=== PATIENT | male | born 2000 | race Caucasian/White ===

== ENCOUNTER → 2018-05-21 | Emergency (ER) | payer OTHER ==
[~2018-05-21] VITALS: Ht 177.8 cm; Wt 68.0 kg
[~2018-05-21] MED LIST: PRD20T PO; RT-ALBUTEROL/IPRATROPIUM 3 ML (DUONEB) VIAL INH ONE
--- NOTE | 2018-05-21 14:57 | ED Respiratory ---
General Chief Complaint: Respiratory Problems Stated Complaint: ASTHMA Nursing Triage Note: pt arrived via EMS on 2L [place] et complaints of feeling SOB since yesterday. Pt states had an asthma attack this morning and was given an albuterol breathing tx. pt states he is feeling better but the nurse wanted him to still come because his oxygen sat was 91% Source: patient Exam Limitations: no limitations History of Present Illness Date Seen by Provider: May 21, 2018 Time Seen by Provider: 14:00 Initial Comments Patient is a 17-year-old male who was brought to the emergency room by [facility], [facility] and [facility] is present. Patient reports that he started having an asthma attack this morning was giving him albuterol breathing treatment and reports relief of shortness of breath and wheezing. The medical nurse at the half-way wanted him to be seen and evaluated. On arrival to the emergency room he is not in any acute distress. He has an extensive history of asthma and is on Advair and albuterol at home. Denies fevers. Timing/Duration: this morning Prior Episodes/Possible Cause: frequent episodes Modifying Factors: Improves With Albuterol Nebulizer Associated Symptoms: denies symptoms Allergies and Home Medications Allergies Coded Allergies: No Known Drug Allergies (Unverified , 05/21/18) Home Medications Prednisone 20 Mg Tab, 40 MG PO DAILY Prescribed by: ALEX MOROCHO on 05/21/18 9639 Patient Home Medication List Home Medication List Reviewed: Yes Review of Systems Review of Systems Constitutional: no symptoms reported, see HPI Respiratory: see HPI, short of breath, wheezing All Other Systems Reviewed Negative Unless Noted: Yes Past Vjiuxau-Wenjrl-Umykvt Hx Past Med/Social Hx: Reviewed Nursing Past Med/Soc Hx Patient Social History Alcohol Use: Occasionally Uses Recreational Drug Use: Yes Drug of Choice: mirajuana Smoking Status: Current Everyday Smoker Type Used: Cigarettes Recent Foreign Travel: No Contact w/Someone Who Travel: No Recent Infectious Disease Expo: No Family Medical History Reviewed Nursing Family Hx Physical Exam Vital Signs - First Documented 05/21/18 05/21/18 05/21/18 14:00 14:14 16:10 Temp 98.4 Pulse 65 Resp 18 B/P (MAP) 132/74 Pulse Ox 97 O2 Delivery Room Air Capillary Refill : Height: 5'10.00" Weight: 150lbs. oz. 68.990884wc; 21.09 BMI Method: General Appearance: WD/WN, no apparent distress HEENT: PERRL/EOMI, normal ENT inspection, TMs normal, pharynx normal Neck: non-tender, full range of motion, supple, normal inspection Respiratory: chest non-tender, no respiratory distress, no accessory muscle use , wheezing (wheezing the lower lobes bilaterally.) Cardiovascular: normal peripheral pulses, regular rate, rhythm, no edema, no gallop, no JVD, no murmur Gastrointestinal: normal bowel sounds, non tender, soft, no organomegaly, no pulsatile mass Neurologic/Psychiatric: alert, normal mood/affect, oriented x 3 Skin: normal color, warm/dry Progress/Results/Core Measures Suspected Sepsis SIRS Temperature:98.4 Pulse: Respiratory Rate: Blood Pressure / Mean: Results/Orders My Orders Orders - ALEX MOROCHO Chest 1 View, Ap/Pa Only (05/21/18 14:08) Albuterol/Ipra Inhalation Soln (Duoneb I (05/21/18 14:15) Svn Small Volume Nebulizer (05/21/18 14:08) Medications Given in ED Vital Signs/I&O 05/21/18 05/21/18 05/21/18 14:00 14:14 16:10 Temp 98.4 97.6 Pulse 65 78 Resp 18 B/P (MAP) 132/74 Pulse Ox 97 100 O2 Delivery Room Air Room Air Room Air Capillary Refill : Progress Note : Time: 14:50 Progress Note I have seen and evaluated the patient. His imaging study results were reviewed with him and his lungs sounds have cleared after breathing treatments. He agrees with plan of care, return precautions were given. Departure Impression Primary Impression: Asthma exacerbation Disposition: 21 DIS/[address]/LAW ENFORCE Condition: Stable/Unchanged Departure-Patient Inst. Decision time for Depature: 14:56 Patient Instructions: Asthma, Adult (DC) Add. Discharge Instructions: Resume your home medications as previously prescribed. Follow-up with your primary care provider or medical professional at the half-way within 1 week for recheck. Take medications as directed. Return back to the emergency room for worsening symptoms or concerns as needed. All discharge instructions reviewed with patient and/or family. Voiced understanding. Scripts Prednisone (Prednisone) 20 Mg Tab 40 MG PO DAILY for 5 Days, #10 TAB Prov: ALEX MOROCHO 05/21/18 ALEX MOROCHO May 21, 2018 14:57
--- NOTE | 2018-05-21 15:41 | NUR ---
pt is sitting up in bed with no complaints. Pt states symptoms have improved
--- NOTE | 2018-05-21 15:41 | Diagnostic Imaging Report ---
INDICATION: Asthma attack. Frontal chest obtained at 02:36 p.m. Heart and mediastinal silhouette are normal in appearance. The lungs are clear. There is no pneumothorax or pleural fluid. IMPRESSION: Negative chest. Dictated by: Dictated on workstation # [id number]
== END | disposition home or self-care (01) ==
LOC: ER 13:57
DX: J45.901 Unspecified asthma with (acute) exacerbation (principal); F12.10 Cannabis abuse, uncomplicated; F17.210 Nicotine dependence, cigarettes, uncomplicated; Z79.51 Long term (current) use of inhaled steroids
CPT/HCPCS: 71045; 94640